=== PATIENT | female | born 1955 | race Caucasian/White ===

== ENCOUNTER → 2017-07-12 | Outpatient (CLI) | payer BC ==
[~2017-07-12] MED LIST: NO HOME MEDICATIONS
== END ==
LOC: COL.RAD 14:39
DX: E04.1 Nontoxic single thyroid nodule (principal); R59.0 Localized enlarged lymph nodes

== ENCOUNTER → 2017-07-19 | Outpatient (CLI) | payer BC | LOC: COL.RAD 17:03 | DX: K57.32 Diverticulitis of large intestine without perforation or abscess without bleeding (principal) ==

== ENCOUNTER 2017-07-20 12:56 | Inpatient (IN) | payer BC ==
[~2017-07-20] VITALS: Ht 170.2 cm; Wt 62.4 kg
[2017-07-20 13:23] VITALS: BP 138/60; PULSE 87; TEMP 98
[2017-07-20 15:27] LABS: BASO % 0.1 % (0.0-2.0); EOS % 0.1 % (0-4.0); GRAN # 10.7 (1.4-6.5); GRAN % 89.3 % (42.2-75.2); HEMATOCRIT 42.5 % (37.0-47.0); HEMOGLOBIN 14.4 g/dl (12.5-16.0); LYMPH # 0.7 (1.2-3.4); LYMPH % 5.6 % (20.0-51.0); MEAN CELL VOLUME 82 fl (80.0-100.0); MEAN CORPUSCULAR HEMOGLOBIN 28 pg (27.0-31.0); MEAN CORPUSCULAR HGB CONC 34 g/dl (33.0-37.0); MEAN PLATELET VOLUME 9.1 fl (7.4-10.4); MONO # 0.5 (0.1-0.6); MONO % 4.4 % (1.7-9.3); PLATELET COUNT 176 K/mm3 (130-400); RED BLOOD COUNT 5.16 M/mm3 (4.10-5.30); REDCELL DISTRIBUTION WIDTH-CV 13.2 % (11.5-14.5)
[2017-07-20 15:39] LABS: ALBUMIN 4.4 gm/dL (3.5-5.0); CALCIUM 9.6 mg/dL (8.4-10.2); CREATININE, serum 0.64 mg/dL (0.52-1.25); TOTAL PROTEIN 7.9 gm/dL (6.4-8.2)
[2017-07-20 15:44] VITALS: BP 136/51; PULSE 82; TEMP 97.4
[2017-07-20 16:15] LABS: MUCOUS Present /lpf; PH 6 (5-8); SQUAMOUS EPITHELIAL 0-2 /hpf; URINE APPEARANCE Hazy; URINE BACTERIA None Seen /hpf; URINE BILIRUBIN Negative (NEGATIVE); URINE BLOOD Negative (NEGATIVE); URINE COLOR Yellow; URINE GLUCOSE Negative (NEGATIVE); URINE KETONE 2+ (NEGATIVE); URINE LEUKOCYTE ESTERASE Trace (NEGATIVE); URINE NITRATE Negative (NEGATIVE); URINE PROTEIN(semi-quant) 1+ (NEGATIVE); URINE RBC 0-2 /hpf; URINE UROBILINOGEN Negative (NEGATIVE)
[2017-07-20 16:16] LABS: COLLECTION METHOD CLEAN CATCH
[2017-07-20 19:35] VITALS: BP 132/58; PULSE 78; TEMP 98.2
[2017-07-21 01:36] VITALS: BP 122/41; PULSE 72; TEMP 97.1
[2017-07-21 03:55] VITALS: BP 117/51; PULSE 74; TEMP 97.6
[2017-07-21 06:28] LABS: BASO % 0.1 % (0.0-2.0); EOS % 0.3 % (0-4.0); GRAN # 10.1 (1.4-6.5); GRAN % 86.7 % (42.2-75.2); HEMATOCRIT 39.4 % (37.0-47.0); HEMOGLOBIN 13.2 g/dl (12.5-16.0); LYMPH # 0.7 (1.2-3.4); LYMPH % 6.1 % (20.0-51.0); MEAN CELL VOLUME 84 fl (80.0-100.0); MEAN CORPUSCULAR HEMOGLOBIN 28 pg (27.0-31.0); MEAN CORPUSCULAR HGB CONC 34 g/dl (33.0-37.0); MEAN PLATELET VOLUME 9.7 fl (7.4-10.4); MONO # 0.7 (0.1-0.6); MONO % 6.2 % (1.7-9.3); PLATELET COUNT 179 K/mm3 (130-400); RED BLOOD COUNT 4.72 M/mm3 (4.10-5.30); REDCELL DISTRIBUTION WIDTH-CV 13.2 % (11.5-14.5)
[2017-07-21 06:38] LABS: CALCIUM 9.1 mg/dL (8.4-10.2); CREATININE, serum 0.64 mg/dL (0.52-1.25); POTASSIUM 3.4 mmol/L (3.4-5.0)
[2017-07-21 07:34] VITALS: BP 123/47; PULSE 76; TEMP 98.2
[2017-07-21 12:37] VITALS: BP 118/54; PULSE 72; TEMP 98.2
[2017-07-21 15:52] VITALS: BP 127/68; PULSE 73; TEMP 97.8
[2017-07-21 16:46] LABS: HEMATOCRIT 35.2 % (37.0-47.0)
[2017-07-21 19:58] VITALS: BP 122/53; PULSE 71; TEMP 97.8
[2017-07-22 01:06] VITALS: BP 127/49; PULSE 71; TEMP 97.4
[2017-07-22 05:05] VITALS: BP 112/58; PULSE 68; TEMP 97.4
[2017-07-22 08:08] LABS: BASO % 0.2 % (0.0-2.0); EOS # 0.1 (0.0-0.7); EOS % 0.9 % (0-4.0); GRAN # 6.3 (1.4-6.5); GRAN % 78.9 % (42.2-75.2); HEMOGLOBIN 12.3 g/dl (12.5-16.0); LYMPH # 0.8 (1.2-3.4); LYMPH % 10.3 % (20.0-51.0); MEAN CELL VOLUME 83 fl (80.0-100.0); MEAN CORPUSCULAR HEMOGLOBIN 28 pg (27.0-31.0); MEAN CORPUSCULAR HGB CONC 34 g/dl (33.0-37.0); MEAN PLATELET VOLUME 9.5 fl (7.4-10.4); MONO # 0.7 (0.1-0.6); MONO % 9.1 % (1.7-9.3); PLATELET COUNT 165 K/mm3 (130-400); RED BLOOD COUNT 4.42 M/mm3 (4.10-5.30); REDCELL DISTRIBUTION WIDTH-CV 13.1 % (11.5-14.5)
[2017-07-22 08:15] LABS: HEMATOCRIT 36.5 % (37.0-47.0)
[2017-07-22 08:26] VITALS: BP 129/67; PULSE 68; TEMP 97.7
[2017-07-22 08:29] LABS: CALCIUM 8.2 mg/dL (8.4-10.2); CREATININE, serum 0.54 mg/dL (0.52-1.25); POTASSIUM 3.1 mmol/L (3.4-5.0)
[2017-07-22 12:04] VITALS: BP 133/60; PULSE 66; TEMP 97.4
[2017-07-22 17:32] VITALS: BP 122/69; PULSE 66; TEMP 97.9
[2017-07-22 20:43] VITALS: BP 118/57; PULSE 68; TEMP 97.2
[2017-07-23 00:57] VITALS: BP 135/63; PULSE 67; TEMP 97.9
[2017-07-23 03:43] VITALS: BP 123/49; PULSE 67; TEMP 97.4
[2017-07-23 07:23] LABS: BASO % 0.1 % (0.0-2.0); EOS # 0.1 (0.0-0.7); EOS % 1.5 % (0-4.0); GRAN # 5.3 (1.4-6.5); LYMPH # 0.8 (1.2-3.4); LYMPH % 11.5 % (20.0-51.0); MEAN CELL VOLUME 83 fl (80.0-100.0); MEAN CORPUSCULAR HGB CONC 34 g/dl (33.0-37.0); MEAN PLATELET VOLUME 9.5 fl (7.4-10.4); MONO # 0.6 (0.1-0.6); MONO % 8.3 % (1.7-9.3); PLATELET COUNT 155 K/mm3 (130-400); RED BLOOD COUNT 4.29 M/mm3 (4.10-5.30); REDCELL DISTRIBUTION WIDTH-CV 13.2 % (11.5-14.5)
[2017-07-23 07:26] LABS: HEMATOCRIT 35.4 % (37.0-47.0); HEMOGLOBIN 11.9 g/dl (12.5-16.0); MEAN CORPUSCULAR HEMOGLOBIN 28 pg (27.0-31.0)
[2017-07-23 07:30] VITALS: BP 136/62; PULSE 72; TEMP 97.9
[2017-07-23 07:38] LABS: CREATININE, serum 0.59 mg/dL (0.52-1.25); POTASSIUM 3.2 mmol/L (3.4-5.0)
[2017-07-23 12:12] VITALS: BP 112/62; PULSE 56; TEMP 97.9
[2017-07-23 15:21] VITALS: BP 154/69; PULSE 73; TEMP 98.1
[2017-07-23 20:33] VITALS: BP 144/69; PULSE 69; TEMP 97.4
[2017-07-24] VITALS (7 sets, daily range): BP systolic 126–151; BP diastolic 49–73; PULSE 62–71; TEMP 97.4–98.7
[2017-07-24 07:29] LABS: HEMOGLOBIN 12.1 g/dl (12.5-16.0); MEAN CELL VOLUME 83 fl (80.0-100.0); MEAN CORPUSCULAR HEMOGLOBIN 28 pg (27.0-31.0); MEAN CORPUSCULAR HGB CONC 34 g/dl (33.0-37.0); MEAN PLATELET VOLUME 9.1 fl (7.4-10.4); PLATELET COUNT 156 K/mm3 (130-400); RED BLOOD COUNT 4.31 M/mm3 (4.10-5.30); REDCELL DISTRIBUTION WIDTH-CV 13.1 % (11.5-14.5)
[2017-07-24 07:30] LABS: HEMATOCRIT 35.6 % (37.0-47.0)
[2017-07-24 07:55] LABS: BAND 1 % (0-10); EOSINOPHIL 2 % (0-4); LYMPHOCYTE 15 % (20.0-51.0); NEUTROPHILS 73 % (42.0-75.2); PLATELET ESTIMATE NORMAL (NORMAL)
[2017-07-24 07:58] LABS: CALCIUM 8.3 mg/dL (8.4-10.2); CREATININE, serum 0.56 mg/dL (0.52-1.25); MAGNESIUM 1.9 mg/dL (1.6-2.3); POTASSIUM 3.4 mmol/L (3.4-5.0)
[2017-07-25 06:39] VITALS: BP 147/71; PULSE 97; TEMP 97.3
[2017-07-25 07:04] LABS: HEMOGLOBIN 12.1 g/dl (12.5-16.0); MEAN CELL VOLUME 82 fl (80.0-100.0); MEAN CORPUSCULAR HEMOGLOBIN 28 pg (27.0-31.0); MEAN CORPUSCULAR HGB CONC 34 g/dl (33.0-37.0); MEAN PLATELET VOLUME 9.2 fl (7.4-10.4); PLATELET COUNT 180 K/mm3 (130-400); RED BLOOD COUNT 4.34 M/mm3 (4.10-5.30)
[2017-07-25 07:14] LABS: HEMATOCRIT 35.6 % (37.0-47.0)
[2017-07-25 07:20] LABS: CALCIUM 8.1 mg/dL (8.4-10.2); CREATININE, serum 0.57 mg/dL (0.52-1.25); MAGNESIUM 2.2 mg/dL (1.6-2.3); PHOSPHOROUS 2.3 mg/dL (2.5-4.5)
[2017-07-25 07:56] LABS: BAND 1 % (0-10); EOSINOPHIL 4 % (0-4); LYMPHOCYTE 17 % (20.0-51.0); NEUTROPHILS 71 % (42.0-75.2); PLATELET ESTIMATE NORMAL (NORMAL)
[2017-07-25 12:16] VITALS: BP 117/69; PULSE 68
[2017-07-25 20:24] VITALS: BP 121/66; PULSE 66; TEMP 97.9
[2017-07-26] VITALS (7 sets, daily range): BP systolic 112–146; BP diastolic 63–83; PULSE 68–74; TEMP 97.6–98.7
[2017-07-26 07:23] LABS: BASO % 0.3 % (0.0-2.0); EOS # 0.2 (0.0-0.7); EOS % 2.4 % (0-4.0); GRAN # 5.5 (1.4-6.5); GRAN % 76.8 % (42.2-75.2); HEMOGLOBIN 12.2 g/dl (12.5-16.0); LYMPH % 14.6 % (20.0-51.0); MEAN CELL VOLUME 84 fl (80.0-100.0); MEAN CORPUSCULAR HEMOGLOBIN 28 pg (27.0-31.0); MEAN CORPUSCULAR HGB CONC 33 g/dl (33.0-37.0); MEAN PLATELET VOLUME 9.6 fl (7.4-10.4); MONO # 0.4 (0.1-0.6); MONO % 5.3 % (1.7-9.3); PLATELET COUNT 185 K/mm3 (130-400); RED BLOOD COUNT 4.37 M/mm3 (4.10-5.30); REDCELL DISTRIBUTION WIDTH-CV 13.2 % (11.5-14.5)
[2017-07-26 07:28] LABS: HEMATOCRIT 36.5 % (37.0-47.0)
[2017-07-26 07:50] LABS: CALCIUM 8.2 mg/dL (8.4-10.2); CREATININE, serum 0.6 mg/dL (0.52-1.25); PHOSPHOROUS 2.6 mg/dL (2.5-4.5)
[2017-07-26 08:02] LABS: POTASSIUM 2.8 mmol/L (3.4-5.0)
[2017-07-27 03:41] VITALS: BP 131/54; PULSE 66; TEMP 97.7
[2017-07-27 06:40] LABS: BASO % 0.3 % (0.0-2.0); EOS # 0.1 (0.0-0.7); EOS % 2.3 % (0-4.0); GRAN # 4.5 (1.4-6.5); LYMPH # 1.1 (1.2-3.4); LYMPH % 17.3 % (20.0-51.0); MEAN CELL VOLUME 83 fl (80.0-100.0); MEAN CORPUSCULAR HGB CONC 33 g/dl (33.0-37.0); MEAN PLATELET VOLUME 10.2 fl (7.4-10.4); MONO # 0.4 (0.1-0.6); MONO % 6.5 % (1.7-9.3); PLATELET COUNT 151 K/mm3 (130-400); RED BLOOD COUNT 4.16 M/mm3 (4.10-5.30); REDCELL DISTRIBUTION WIDTH-CV 13.3 % (11.5-14.5)
[2017-07-27 06:45] LABS: HEMATOCRIT 34.6 % (37.0-47.0); HEMOGLOBIN 11.3 g/dl (12.5-16.0); MEAN CORPUSCULAR HEMOGLOBIN 27 pg (27.0-31.0)
[2017-07-27 06:53] LABS: ANION GAP 6 mmol/L (7-16); CALCIUM 8.1 mg/dL (8.4-10.2); CARBON DIOXIDE 24 mmol/L (22-30); CHLORIDE 106 mmol/L (98-107); CREATININE, serum 0.56 mg/dL (0.52-1.25); GLUCOSE 109 mg/dL (74-106); POTASSIUM 3.3 mmol/L (3.4-5.0); SODIUM 135 mmol/L (137-145)
[2017-07-27 06:56] LABS: BLOOD UREA NITROGEN < 2 mg/dL (7-17)
[2017-07-27 07:49] VITALS: BP 129/55; PULSE 67; TEMP 97.7
[2017-07-27 11:30] VITALS: BP 133/63; PULSE 69; TEMP 97.5
[2017-07-27 17:04] VITALS: BP 126/60; PULSE 73; TEMP 97.9
[2017-07-27 21:25] VITALS: BP 124/67; PULSE 70; TEMP 98.6
[2017-07-28] VITALS (17 sets, daily range): BP systolic 111–172; BP diastolic 53–97; PULSE 70–112; TEMP 97.2–98.2
[2017-07-28 06:43] LABS: HEMATOCRIT 37.5 % (37.0-47.0); HEMOGLOBIN 12.4 g/dl (12.5-16.0); MEAN CELL VOLUME 83 fl (80.0-100.0); MEAN CORPUSCULAR HEMOGLOBIN 28 pg (27.0-31.0); MEAN CORPUSCULAR HGB CONC 33 g/dl (33.0-37.0); MEAN PLATELET VOLUME 9.7 fl (7.4-10.4); PLATELET COUNT 228 K/mm3 (130-400); RED BLOOD COUNT 4.51 M/mm3 (4.10-5.30); REDCELL DISTRIBUTION WIDTH-CV 13.3 % (11.5-14.5)
[2017-07-28 06:48] LABS: INR 1.3 (0.8-3.0); PROTHROMBIN TIME 14.9 SECONDS (9.7-12.8)
[2017-07-28 06:50] LABS: CREATININE, serum 0.52 mg/dL (0.52-1.25); MAGNESIUM 2.1 mg/dL (1.6-2.3); PHOSPHOROUS 3.4 mg/dL (2.5-4.5)
[2017-07-28 10:18] LABS: BAND 15 % (0-10); LYMPHOCYTE 8 % (20.0-51.0); NEUTROPHILS 76 % (42.0-75.2); PLATELET ESTIMATE NORMAL (NORMAL)
[2017-07-29 01:29] VITALS: BP 110/64; PULSE 78; TEMP 98.6
[2017-07-29 06:03] LABS: BASO % 0.1 % (0.0-2.0); EOS % 0.1 % (0-4.0); GRAN # 9.1 (1.4-6.5); GRAN % 81.4 % (42.2-75.2); LYMPH # 1.3 (1.2-3.4); LYMPH % 11.9 % (20.0-51.0); MEAN CELL VOLUME 84 fl (80.0-100.0); MEAN CORPUSCULAR HGB CONC 33 g/dl (33.0-37.0); MEAN PLATELET VOLUME 9.4 fl (7.4-10.4); MONO # 0.7 (0.1-0.6); MONO % 6.2 % (1.7-9.3); PLATELET COUNT 211 K/mm3 (130-400); RED BLOOD COUNT 4.14 M/mm3 (4.10-5.30); REDCELL DISTRIBUTION WIDTH-CV 13.7 % (11.5-14.5)
[2017-07-29 06:04] LABS: HEMATOCRIT 34.9 % (37.0-47.0); HEMOGLOBIN 11.4 g/dl (12.5-16.0); MEAN CORPUSCULAR HEMOGLOBIN 28 pg (27.0-31.0)
[2017-07-29 06:28] LABS: CALCIUM 8.4 mg/dL (8.4-10.2); CREATININE, serum 0.69 mg/dL (0.52-1.25); POTASSIUM 3.4 mmol/L (3.4-5.0)
[2017-07-29 07:46] VITALS: BP 82/62; PULSE 78; TEMP 97.9
[2017-07-29 09:43] VITALS: BP 98/48
[2017-07-29 12:29] VITALS: BP 117/59; PULSE 78; TEMP 98
[2017-07-29 15:21] VITALS: BP 127/60; PULSE 77; TEMP 97.3
[2017-07-29 19:51] VITALS: BP 110/66; PULSE 80; TEMP 97.5
[2017-07-30 00:28] VITALS: BP 115/55; PULSE 81; TEMP 98.6
[2017-07-30 04:09] VITALS: BP 123/66; PULSE 78; TEMP 98.9
[2017-07-30 07:07] LABS: BASO % 0.1 % (0.0-2.0); EOS % 0.2 % (0-4.0); GRAN # 7.1 (1.4-6.5); GRAN % 79.6 % (42.2-75.2); LYMPH # 1.1 (1.2-3.4); LYMPH % 12.1 % (20.0-51.0); MEAN CELL VOLUME 85 fl (80.0-100.0); MEAN CORPUSCULAR HGB CONC 33 g/dl (33.0-37.0); MEAN PLATELET VOLUME 9.7 fl (7.4-10.4); MONO # 0.7 (0.1-0.6); MONO % 7.5 % (1.7-9.3); PLATELET COUNT 199 K/mm3 (130-400); RED BLOOD COUNT 3.98 M/mm3 (4.10-5.30); REDCELL DISTRIBUTION WIDTH-CV 13.7 % (11.5-14.5)
[2017-07-30 07:27] LABS: HEMATOCRIT 33.8 % (37.0-47.0); MEAN CORPUSCULAR HEMOGLOBIN 28 pg (27.0-31.0)
[2017-07-30 07:40] LABS: CALCIUM 8.3 mg/dL (8.4-10.2); CREATININE, serum 0.59 mg/dL (0.52-1.25); MAGNESIUM 2.1 mg/dL (1.6-2.3); PHOSPHOROUS 2.8 mg/dL (2.5-4.5)
[2017-07-30 09:21] VITALS: BP 125/59; PULSE 80; TEMP 97.7
[2017-07-30] MEDS ORDERED: CIPRO 500MG TA500 MG PO (12:06)
[2017-07-30] MEDS ORDERED: FLAGYL 250250 MG/TAB PO (12:06)
[2017-07-30] MEDS ORDERED: ZOFRAN ODT4 MG PO (12:07)
[2017-07-30 12:29] VITALS: BP 107/59; PULSE 71; TEMP 97.8
== END 2017-07-30 18:55 | disposition home or self-care (01) | DRG 392 ==
LOC: MEDICAL 12:56
PROVIDERS: Internal Medicine; Physician Assistant; Surgery
PROC: 0J9C30Z Drainage of Pelvic Region Subcutaneous Tissue and Fascia with Drainage Device, Percutaneous Approach (ICD-10-PCS; principal; 2017-07-28)
DX: K57.20 Diverticulitis of large intestine with perforation and abscess without bleeding (principal); E87.1 Hypo-osmolality and hyponatremia; K56.600 Partial intestinal obstruction, unspecified as to cause; N39.0 Urinary tract infection, site not specified; E44.0 Moderate protein-calorie malnutrition; J45.909 Unspecified asthma, uncomplicated; E87.6 Hypokalemia; E83.42 Hypomagnesemia; E83.39 Other disorders of phosphorus metabolism; E83.51 Hypocalcemia; D64.9 Anemia, unspecified; E04.1 Nontoxic single thyroid nodule
CPT/HCPCS: 99222-AI; 99231-AI; 99232-AI; 99233-AI; 99239; A9284; C1729; C9113; J0610; J0744; J1200; J2250; J2405; J3010; J3475; J3480; J7030; J7040; J7050; J7070; J7512; Q9967

== ENCOUNTER → 2017-08-23 | Outpatient (CLI) | payer BC ==
[~2017-08-23] MED LIST changes: +CIPRO 500MG TA500 MG PO; +FLAGYL 250250 MG/TAB PO; +ZOFRAN ODT4 MG PO
[2017-08-23 12:30] LABS: HEMATOCRIT 43.2 % (37.0-47.0); HEMOGLOBIN 14.4 g/dl (12.5-16.0); MEAN CELL VOLUME 83 fl (80.0-100.0); MEAN CORPUSCULAR HEMOGLOBIN 28 pg (27.0-31.0); MEAN CORPUSCULAR HGB CONC 33 g/dl (33.0-37.0); MEAN PLATELET VOLUME 9.8 fl (7.4-10.4); PLATELET COUNT 199 K/mm3 (130-400); RED BLOOD COUNT 5.18 M/mm3 (4.10-5.30); REDCELL DISTRIBUTION WIDTH-CV 13.5 % (11.5-14.5)
[2017-08-23 12:39] LABS: ALBUMIN 4.9 gm/dL (3.5-5.0); BILIRUBIN,TOTAL 0.5 mg/dL (0.0-1.0); CALCIUM 9.8 mg/dL (8.4-10.2); CREATININE, serum 0.56 mg/dL (0.52-1.25); POTASSIUM 4.3 mmol/L (3.4-5.0); TOTAL PROTEIN 8.2 gm/dL (6.4-8.2)
== END ==
LOC: COL.RAD 12:00
PROVIDERS: Surgery
DX: K57.30 Diverticulosis of large intestine without perforation or abscess without bleeding (principal); Z91.041 Radiographic dye allergy status; Z98.890 Other specified postprocedural states
CPT/HCPCS: Q9967

== ENCOUNTER → 2019-04-18 | Outpatient (CLI) | payer BC | LOC: COL.RAD 12:27 | DX: K57.30 Diverticulosis of large intestine without perforation or abscess without bleeding (principal); M41.85 Other forms of scoliosis, thoracolumbar region; Z90.710 Acquired absence of both cervix and uterus | CPT/HCPCS: Q9967 ==

== ENCOUNTER → 2019-09-05 | Outpatient (CLI) | payer BC | LOC: MC.RAD 07:45 | DX: Z12.31 Encounter for screening mammogram for malignant neoplasm of breast (principal) ==